=== PATIENT | male | born 1995 | race Native Hawaiian/Other Pacific Islander ===

== ENCOUNTER 2025-05-20 22:43 | Emergency (ER) | payer OTHER ==
[~2025-05-20] VITALS: Ht 170.2 cm; Wt 126.2 kg
[2025-05-21] MEDS ORDERED: LIDOCAINE/RACEPINEP/TETRACAINE 3 ML SYR TOP ONE (00:15)
[2025-05-21 00:49] VITALS: BP 133/74
== END 2025-05-21 00:49 | disposition other institution, planned readmission (95) ==
LOC: ED 22:43
DX: S02.2XXA Fracture of nasal bones, initial encounter for closed fracture (principal); S01.01XA Laceration without foreign body of scalp, initial encounter; G40.909 Epilepsy, unspecified, not intractable, without status epilepticus; Z91.018 Allergy to other foods; Y04.2XXA Assault by strike against or bumped into by another person, initial encounter
CPT/HCPCS: 12002; 70450; 70486; 72125; 99284-25

== ENCOUNTER 2025-07-05 00:15 | Emergency (ER) | payer OTHER ==
[~2025-07-05] VITALS: Ht 170.2 cm; Wt 125.6 kg
[2025-07-05] MEDS ORDERED: PAXIL30 MG PO (00:23)
[2025-07-05] MEDS ORDERED: SEBEX SHAMPOO118 ML TOP (00:23)
[2025-07-05] MEDS ORDERED: TRAZODONE HCL100 MG PO (00:24)
[2025-07-05] MEDS ORDERED: ABILIFY10 MG PO (00:24)
[2025-07-05 00:33] LABS: BASOPHILS 0.5 % (0.2-1.2); EOSINOPHILS 3.5 % (0.8-7.0); LYMPHOCYTES 34.7 % (21.8-53.1); MCH 28.4 PG (25.7-32.2); MCHC 33.7 g/dL (32.3-36.5); MCV 84.2 fL (79.0-92.2); MONOCYTES 8.6 % (5.3-12.2); NEUTROPHILS 52.4 % (34.0-67.9); RBC 5.32 M/uL (4.63-6.08)
[2025-07-05 01:04] LABS: ALT (SGPT) 44.0 U/L (14-59); AST (SGOT) 14.0 U/L (15-37); GLOMERULAR FILTRATION RATE,EST 96.0 mL/min (>60); PROTEIN, TOTAL 7.1 g/dL (6.4-8.2); UREA NITROGEN 16.0 mg/dL (7-18)
[2025-07-05] MEDS ORDERED: lamoTRIgine 25 MG TAB PO ONE (01:30)
[2025-07-05 01:35] LABS: BLOOD/HGB, URINE NEGATIVE (Negative); KETONE, URINE NEGATIVE (Negative); LEUK ESTERASE, URINE NEGATIVE (negative); NITRITE, URINE NEGATIVE (negative)
[2025-07-05] MEDS ORDERED: LAMICTAL25 MG PO (01:41)
[2025-07-05 01:50] LABS: AMPHETAMINES, URINE NEGATIVE (NEGATIVE); BARBITURATES, URINE NEGATIVE (NEGATIVE); BENZODIAZEPINE, URINE NEGATIVE (NEGATIVE); CANNABINOID, URINE NEGATIVE (NEGATIVE); COCAINE, URINE NEGATIVE (NEGATIVE); ECSTASY, URINE NEGATIVE (NEGATIVE); FENTANYL, URINE NEGATIVE (NEGATIVE); METHADONE, URINE NEGATIVE (NEGATIVE); OPIATES, URINE NEGATIVE (NEGATIVE); OXYCODONE, URINE NEGATIVE (NEGATIVE); PHENCYCLIDINE, URINE NEGATIVE (NEGATIVE)
[2025-07-05 02:05] VITALS: BP 117/60
== END 2025-07-05 02:10 | disposition other institution, planned readmission (95) ==
LOC: ED 00:15
PROVIDERS: Internal Medicine
DX: G40.409 Other generalized epilepsy and epileptic syndromes, not intractable, without status epilepticus (principal); Z91.018 Allergy to other foods; Z79.899 Other long term (current) drug therapy
CPT/HCPCS: 36415; 80053; 80307; 81003; 85025; 99284